=== PATIENT | female | born 1990 | race Caucasian/White ===

== ENCOUNTER 2016-10-10 01:25 | Emergency (ER) | payer BC ==
[~2016-10-10] VITALS: Ht 160 cm; Wt 91.0 kg
[2016-10-10 01:54] VITALS: Ht 160 cm; Wt 91.0 kg
[2016-10-10] MEDS ORDERED: KETOROLAC 30 MG INJ IM STA (03:57)
--- NOTE | 2016-10-10 04:03 | ERD ---
ER Documentation Chief Complaint Date/Time DATE: 10/10/16 TIME: 03:58 Chief Complaint rt ankle pain and swelling r/t fall HPI 26-year-old female presented emergency room for right ankle pain/swelling. [place] and fell , landed on her right foot/ankle, landed on the dirt. Complaints of right foot lateral pain. Denies headache, loss of consciousness, dizziness, blurry vision, changes in vision, photophobia, facial pain, ear pain, throat pain, difficulty swallowing, neck pain, shoulder pain, chest pain, cough, hemoptysis, abdominal pain, back pain, loss of appetite, nausea, vomiting, hematochezia, diarrhea, constipation, urinary symptoms, , the possibility of being , bladder and bowel incontinences, numbness or tingling sensation, difficulty walking, recent travel, recent exposure to illness, recent antibiotic use in the last 3 months, fever, chills. LMP:" 3 weeks ago." A0. No known drug allergies. Past medical history: Acid reflux. Surgery: Removal of benign tumor to her abdomen 2016. Removal of polyp to her nasal cavity in 2016. Medication: Omeprazole. 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 Denies smoking, use of alcohol, use of illegal drugs. ROS All systems reviewed and are negative except as per history of present illness. Medications Home Meds Active Scripts Hydrocodone/Acetaminophen (Shonto 5-325 Tablet) 1 Each Tablet, 1 TAB PO Q6H Y for PAIN, #10 TAB Prov:PASILABAN,KLAR F 10/10/16 Ibuprofen* (Motrin*) 600 Mg Tab, 600 MG PO Q6H Y for PAIN AND OR ELEVATED TEMP, #30 TAB Prov:PASILABAN,KLAR F 10/10/16 Allergies Allergies: Coded Allergies: No Known Allergy (Unverified , 10/10/16) PMhx/Soc Medical and Surgical Hx: pt denies Medical Hx Hx Alcohol Use: Yes (occassional) Hx Substance Use: No Hx Tobacco Use: No Smoking Status: Never smoker Physical Exam Vitals Vital Signs Date Time Temp Pulse Resp B/P Pulse Ox O2 Delivery O2 Flow Rate FiO2 10/10/16 01:54 99.3 98 18 131/83 96 Physical Exam CONSTITUTIONAL: Well-appearing; well-nourished; in no apparent distress. HEAD: Normocephalic; atraumatic. EYES: Conjunctiva clear, sclera non-icteric, EOM intact. PERRLA. Ears: Hearing intact. EACs clear, TMs non-bulging, non-inflamed, translucent & mobile, ossicles normal appearance, No obstructions, no erythema, no discharges Nose: No obstructions. No polyps. No external lesions. Mucosa non-inflamed. No external lesions, septum and turbinates normal. No rhinorrhea. No discharges. Frontal sinus is non-tender to palpation. Maxillary sinus is non-tender to palpation. MOUTH: Moist mucous membranes, no lesion, no obstructions, no vesicles, no thrush, patent airway Throat: Uvula in midline. Right tonsil is +1 with no erythema, no exudate. Left tonsil is +1 with no erythema, no exudate. Tolerating secretions well. Good gag reflex. Patent airway. Neck: Supple, without lesions, bruits, or adenopathy. No mass. Thyroid non- enlarged and non-tender to palpation. CHEST: Symmetrical chest. Respirations even and not labored. No retractions noted. CARDIOVASCULAR: Normal S1, S2. RRR. No murmurs, gallops. RESPIRATORY: Normal chest excursion with respiration; breath sounds clear and equal bilaterally; no wheezes, rhonchi, or rales. Breathing even and unlabored. Speaking in clear, full, and complete sentences w/ ease. ABDOMEN: Normal bowel sounds normal. Soft, round, non-distended, non-guarding, no tenderness, no rebound, no organomegaly, no masses, no pulsating abdominal mass. No hernia. No peritoneal signs. : No CVA tenderness. BACK: Symmetrical shoulder. Spine is midline without deformity, tenderness. No evidence of trauma or deformity. PELVIS: Stable pelvis. No evidence of trauma or deformity. MUSCULOSKELETAL: Normal gait and station. No misalignment, asymmetry, crepitation, defects, tenderness, masses, effusions, decreased range of motion, instability, atrophy or abnormal strength or tone in the head, neck, spine, ribs , pelvis or extremities except right lateral foot ankle with tenderness to palpation but with no obvious swelling/deformity/discoloration. Right knee is unremarkable. Right hip is unremarkable. Left hip is unremarkable. Left ankle /foot is unremarkable. Left knee has a mild abrasion anteriorly with no obvious deformity/swelling/discoloration. No calf tenderness. NEUROVASCULAR: Distal pulses are present. Pedal pulse are present, equal, and normal. Capillary refills are < 2 seconds. NEUROLOGIC: Alert and oriented x4. Speaks full and clear sentences. Cranial Nerves II-XII normal. Sensation to pain, touch, and proprioception normal. Grossly unremarkable. No neurologic deficits. Romberg test is negative. PSYCHOLOGICAL: The patients mood and manner are appropriate. No hallucinations , delusions. Not SI. Not HI. Has the capacity to decide for self SKIN: Normal for age and ethnicity; warm; dry; good turgor; no apparent lesions or exudates. No rashes, hives, discoloration. Intact. Results 24 hrs Current Medications Medications (Trade) Dose Ordered Sig/Gabriela Route PRN Reason Start Time Stop Time Status Last Admin Dose Admin Ketorolac Tromethamine (Toradol) 30 mg ONCE STAT IM 10/10/16 03:57 10/10/16 03:59 DC 10/10/16 04:32 Procedures/MDM Examination: Please see physical examination. Disease process, medical treatment was explained to the patient and family member. They verbalized understanding and agreed with the diagnostic tests, medical treatment, and follow-up care. Radiology: Right foot x-ray Impression: Unremarkable right foot radiographs. POC urine : Negative. Treatment: Toradol IM. Jarrell wrap. Crutches. Re-evaluation: Denies foot/ankle pain. No neurovascular deficits prior to and after the application of Jarrell wrap. Consultation: None. Differential diagnosis: fracture versus dislocation versus contusion versus sprain. Medical decision makin-year-old female presented emergency room for right ankle pain/swelling. [place] and [place], landed on her right foot/ankle, landed on the dirt. Complaints of right foot lateral pain. Patient's complaint, patient's presentation, my physical findings, diagnostic test results, my re-evaluation are consistent with my final diagnosis of foot/ankle sprain/contusion. Medications prescribed are the following: Shonto. Motrin. Patient and family member are made aware of the side effects and adverse reactions of the medications prescribed. Instructed on when to seek emergent and medical attention in case allergic/anaphylactic reactions or severe side effects and or adverse reactions to medications. Patient and family member verbalized understanding. Patient instructed Instructed to follow-up with his PCP in 24-48 hours. PCP to refer patient to orthopedic doctor if symptoms persist. Instructed to Call 911 for chest pain, shortness of breath. Advised to come back here in ED as soon as possible for severity of symptoms which includes but not limited to: any new symptoms; shortness of breath/difficulty of breathing; cardiovascular changes; severe gastrointestinal symptoms; signs and symptoms of bleeding and or infection; signs of compartment syndrome/neurovascular changes; neurological changes/deficits. Patient and family member verbalized understanding. Upon discharge, patient is alert and oriented x 4, speaks full and clear sentences, denies pain, has no neurological deficits, has no neurovascular deficits, difficulty of breathing. Breathing even and unlabored. Lung sounds are clear to auscultation. Not in distress. Appears comfortable. Appears satisfied with care provided here in ED. Departure Diagnosis: Primary Impression: Ankle injury Additional Impressions: Ankle pain Ankle sprain Foot sprain Condition: Good Additional Instructions: Patient instructed Instructed to follow-up with his PCP in 24-48 hours. PCP to refer patient to orthopedic doctor if symptoms persist. Instructed to Call 911 for chest pain, shortness of breath. Advised to come back here in ED as soon as possible for severity of symptoms which includes but not limited to: any new symptoms; shortness of breath/difficulty of breathing; cardiovascular changes; severe gastrointestinal symptoms; signs and symptoms of bleeding and or infection; signs of compartment syndrome/neurovascular changes; neurological changes/deficits. Patient and family member verbalized understanding. QUINTON ABRAHAM Oct 10, 2016 04:03 Primary Impression: Ankle injury Additional Impressions: Ankle pain Ankle sprain Foot sprain Additional Instructions: Patient instructed Instructed to follow-up with his PCP in 24-48 hours. PCP to refer patient to orthopedic doctor if symptoms persist. Instructed to Call 911 for chest pain, shortness of breath. Advised to come back here in ED as soon as possible for severity of symptoms which includes but not limited to: any new symptoms; shortness of breath/difficulty of breathing; cardiovascular changes; severe gastrointestinal symptoms; signs and symptoms of bleeding and or infection; signs of compartment syndrome/neurovascular changes; neurological changes/deficits. Patient and family member verbalized understanding. QUINTON ABRAHAM Oct 10, 2016 04:03
--- NOTE | 2016-10-10 04:39 | RADRPT ---
PROCEDURE: RIGHT FOOT - 3 VIEWS CLINICAL INDICATION: 26-year-old female with right foot pain. TECHNIQUE: AP, lateral and oblique views of the right foot was obtained. The images were reviewed on a PACS workstation. COMPARISON: None. FINDINGS: The bones of the right foot appear intact, with no evidence of fracture, dislocation, or subluxation . The joint spaces are preserved. Bone mineralization is within normal limits. No radiopaque foreig n body is seen. IMPRESSION: Unremarkable right foot radiographs. .Dimas Castro MD, MD Date Time Electronically viewed and signed by .Dimas Castro MD, on 10/10/2016 04:38 .M/
[2016-10-10] MEDS ORDERED: IBUP-1542 PO (05:05)
[2016-10-10] MEDS ORDERED: HYDR-906 PO (05:05)
== END 2016-10-10 05:26 | disposition home or self-care (01) ==
LOC: FTE 01:25
DX: S93.401A Sprain of unspecified ligament of right ankle, initial encounter (principal); S93.601A Unspecified sprain of right foot, initial encounter; W01.0XXA Fall on same level from slipping, tripping and stumbling without subsequent striking against object, initial encounter; Y92.9 Unspecified place or not applicable
CPT/HCPCS: 73630; 96372; 99284; J1885

== ENCOUNTER 2017-08-03 14:08 | Emergency (ER) | END 2017-08-03 15:58 | disposition home or self-care (01) ==

== ENCOUNTER → 2018-02-15 | Outpatient (CLI) | END | disposition home or self-care (01) ==

== ENCOUNTER → 2018-03-25 | Outpatient (CLI) | END | disposition home or self-care (01) ==

== ENCOUNTER → 2018-09-08 | Outpatient (CLI) | payer BC ==
[~2018-09-08] MED LIST: CLIN300C10 PO; HYDR-3980 PO; IBUP800T48 PO; ONDA4TAB14 PO
== END | disposition home or self-care (01) ==
LOC: LAB 09:12
PROVIDERS: ATTEND Obstetrics & Gynecology
DX: O02.1 Missed abortion (principal)
CPT/HCPCS: 86850; 86900; 86901

== ENCOUNTER 2018-10-17 10:05 | Day surgery (SDC) | payer BC ==
[~2018-10-17] VITALS: Ht 160 cm; Wt 77.0 kg
[2018-10-17 10:58] VITALS: Ht 160 cm; Wt 77.0 kg
[2018-10-17] MEDS ORDERED: OMEP40CA6 PO (11:05)
[2018-10-17] MEDS ORDERED: ALPR2TAB PO (11:05)
--- NOTE | 2018-10-17 11:29 | PREAC ---
Date/Time of Note Date/Time of Note DATE: 10/17/18 TIME: 11:28 Anesthesia Eval and Record Evaluation Time Pre-Procedure Interview DATE: 10/17/18 TIME: 11:28 Age 28 Sex female NPO: 8 hrs Preoperative diagnosis GERD Planned procedure EGD Past Medical History Past Medical History: Includes Pulm: Other (hookah everyday last smoked yesterday) GI: GERD Surgery & Anesthesia Issues No known issue Meds Anticoagulation: No Beta Chapin within 24 hr: No Reason Beta Chapin not given: Pt. not on B-Chapin Reported Medications Alprazolam* (Xanax*) 2 Mg Tablet, 2 MG PO Q8H PRN for ANXIETY, TAB 10/17/18 Omeprazole* (Omeprazole*) 40 Mg Capsule.dr, 40 MG PO DAILY, #30 CAP 10/17/18 Discontinued Scripts Clindamycin Hcl* (Clindamycin Hcl*) 300 Mg Capsule, 300 MG PO TID for 7 Days, CAP Prov:BEVERLY KHAN MD 06/18/18 Ibuprofen* (Motrin*) 800 Mg Tab, 800 MG PO Q6H PRN for PAIN AND OR ELEVATED TEMP, #30 TAB Prov:BEVERLY KHAN MD 06/18/18 Ondansetron (Ondansetron Odt) 4 Mg Tab.rapdis, 4 MG PO Q6H PRN for NAUSEA AND/OR VOMITING, #10 TAB Prov:BEVERLY KHAN MD 06/18/18 Hydrocodone/Acetaminophen ([place] 10-325 Tablet) 1 Each Tablet, 1 TAB PO Q6H PRN for PAIN, #7 TAB Prov:BEVERLY KHAN MD 06/18/18 Meds reviewed: Yes Allergies Coded Allergies: No Known Allergy (Unverified , 10/10/16) Allergies Reviewed: Yes Labs/Studies Labs Reviewed: Reviewed by anesthesiologist test: Negative Pre-procedure Exam Airway: Adequate mouth opening, Adequate thyromental dist Mallampati: Mallampati II Teeth: Normal Lung: Normal Heart: Normal ASA Physical Status ASA physical status: 1 Emergency: None Planned Anesthetic General/MAC: MAC Planned Pain Management Parenteral pain med Pre-operative Attestations Prior to commencing anesthesia and surgery, the patient was re-evaluated, there was verification of: *The patient's identity *The results of appropriate recent lab work and preoperative vital signs *The above evaluation not changing prior to induction *Anesthetic plan, risk benefits, alternative and complications discussed with patient/family; questions answered; patient/family understands, accepts and wishes to proceed. CASSIA BLAKELY Oct 17, 2018 11:29
[2018-10-17] MEDS ORDERED: PROPOFOL 20 ML ONE (11:49)
[2018-10-17 11:54] VITALS: BP 111/61; RESP 16
--- NOTE | 2018-10-17 12:26 | PAC ---
Date/Time of Note Date/Time of Note DATE: 10/17/18 TIME: 12:25 Post-Anesthesia Notes Post-Anesthesia Note Last documented vital signs POST: BP 112/62 HR 58 Spo2 100% RR 14 Temp 97.8 Activity: WNL Respiratory function: WNL Cardiovascular function: WNL Mental status: Baseline Pain reasonably controlled: Yes Hydration appropriate: Yes Nausea/Vomiting absent: Yes CASSIA BLAKELY Oct 17, 2018 12:26
[2018-10-17] MEDS ORDERED: ONDANSETRON 4 MG INJ IV STA (12:31)
[2018-10-17] MEDS ORDERED: ONDANSETRON 4 MG INJ ONE (12:34)
[2018-10-17 12:36] VITALS: BP 116/73; PULSE 63; RESP 18
== END 2018-10-17 13:16 | disposition home or self-care (01) ==
LOC: GIL 10:05
PROVIDERS: ATTEND Internal Medicine Gastroenterology
DX: K20.8 Other esophagitis (principal)
CPT/HCPCS: 43239; 84703; 88305; 88312; 88313; J2405

== ENCOUNTER → 2018-10-19 | Outpatient (CLI) | payer BC ==
[~2018-10-19] MED LIST changes: +ALPR2TAB PO; -CLIN300C10 PO; -HYDR-3980 PO; -IBUP800T48 PO; +OMEP40CA6 PO; -ONDA4TAB14 PO
== END | disposition home or self-care (01) ==
LOC: LAB 10-18 16:04
PROVIDERS: ATTEND Internal Medicine
DX: Z01.818 Encounter for other preprocedural examination (principal); E03.9 Hypothyroidism, unspecified
CPT/HCPCS: 80053; 80061; 81003; 82306; 82607; 84439; 84443; 85025; 86480; 86704; 86706; 86708